=== PATIENT | female | born 1980 | race Two or more races ===

== ENCOUNTER 2023-05-12 07:45 | Inpatient (IN) | payer OTHER ==
[~2023-05-12] VITALS: Ht 165.1 cm; Wt 59.0 kg
[2023-05-12 08:57] LABS: PH,URINE 5.5 (5.0-8.0); URINE APPEARANCE Clear; URINE BILIRRUBIN Negative (NEGATIVE); URINE BLOOD Small; URINE COLOR Yellow; URINE GLUCOSE Negative (NEGATIVE); URINE LEUKOCYTE Negative; URINE NITRATE Negative; URINE PROTEIN Negative (NEGATIVE); URINE UROBILINOGEN 0.2 E.U./dl
[2023-05-12 09:01] LABS: URINE BACTERIA 12.5 uL (0.0-1933); URINE EPITHELIAL CELLS 10.5 uL (0.0-38.8); URINE RBC 15.2 uL (0.0-20.8)
[2023-05-12 09:12] LABS: HEMATOCRIT 39.7 % (36.0-45.00); HEMOGLOBIN 13.5 g/dL (12.0-15.00); MEAN CELL VOLUME 90.3 fL (80.00-100.00); MEAN CORPUSCULAR HEMOGLOBIN 30.8 pg (27.00-32.0); MEAN CORPUSCULAR HGB CONC 34.1 g/dl (32.0-36.0); PLATELET COUNT 196 K/uL (150-450); RED CELL DISTRIBUTION WIDTH 14.1 % (11.5-14.5)
[2023-05-12 09:24] LABS: INR 0.99; PARTIAL THROMBOPLASTIN TIME 26.8 SECONDS (22.0-34.0); PROTHROMBIN TIME 10.4 SECONDS (9.0-11.5)
[2023-05-12 09:48] LABS: BILIRUBIN TOTAL 1.1 mg/dL (0.3-1.2); CALCIUM 9.1 mg/dL (8.5-10.1); CREATININE SERUM 0.56 mg/dL (0.55-1.02); GFR 117.6; GLOBULINA 2.9 G/DL (2.4-3.5); POTASSIUM 4.1 mEq/L (3.5-5.1); TOTAL PROTEIN 6.9 gm/dL (6.4-8.2); TSH 1.79 uIU/mL (0.358-3.74)
[2023-05-15 13:40] LABS: HEMATOCRIT 36.6 % (36.0-45.00); HEMOGLOBIN 12.6 g/dL (12.0-15.00); MEAN CORPUSCULAR HEMOGLOBIN 30.5 pg (27.00-32.0); MEAN CORPUSCULAR HGB CONC 34.3 g/dl (32.0-36.0); PLATELET COUNT 173 K/uL (150-450); RED BLOOD COUNT 4.12 M/uL (4.00-6.00); RED CELL DISTRIBUTION WIDTH 14.1 % (11.5-14.5)
[2023-05-18] MEDS ORDERED: Tylenol #3 PO (11:36)
[2023-05-18] MEDS ORDERED: NAPR500T14 PO (11:36)
== END 2023-05-18 12:41 | disposition home or self-care (01) | DRG 743 ==
LOC: O/R 05-15 05:15 → SURG 05-15 07:45 → OB/GYN 05-15 12:28 → SURG 05-15 12:30 → O/R 05-15 14:02 → OB/GYN 05-15 14:11
PROVIDERS: ADMIT Obstetrics & Gynecology; ATTEND Obstetrics & Gynecology
PROC: 0UT70ZZ Resection of Bilateral Fallopian Tubes, Open Approach (ICD-10-PCS; 2023-05-15)
PROC: 0UT20ZZ Resection of Bilateral Ovaries, Open Approach (ICD-10-PCS; 2023-05-15)
PROC: 0TJB8ZZ Inspection of Bladder, Via Natural or Artificial Opening Endoscopic (ICD-10-PCS; 2023-05-15)
PROC: 0UT90ZZ Resection of Uterus, Open Approach (ICD-10-PCS; principal; 2023-05-15 12:30)
DX: D25.1 Intramural leiomyoma of uterus (principal); N84.1 Polyp of cervix uteri; N83.01 Follicular cyst of right ovary; N83.02 Follicular cyst of left ovary; N83.12 Corpus luteum cyst of left ovary; N83.11 Corpus luteum cyst of right ovary; N92.0 Excessive and frequent menstruation with regular cycle; N81.11 Cystocele, midline; Z20.822 Contact with and (suspected) exposure to COVID-19

== ENCOUNTER 2023-07-14 15:53 | Emergency (ER) | payer OTHER ==
[~2023-07-14] VITALS: Ht 165.1 cm; Wt 56.7 kg
[~2023-07-14 15:53] MED LIST: NAPR500T14 PO; Tylenol #3 PO
[2023-07-14 19:23] LABS: HEMATOCRIT 40.2 % (36.0-45.00); HEMOGLOBIN 13.8 g/dL (12.0-15.00); MEAN CELL VOLUME 86.4 fL (80.00-100.00); MEAN CORPUSCULAR HEMOGLOBIN 29.6 pg (27.00-32.0); MEAN CORPUSCULAR HGB CONC 34.3 g/dl (32.0-36.0); PLATELET COUNT 217 K/uL (150-450); RED BLOOD COUNT 4.65 M/uL (4.00-6.00); RED CELL DISTRIBUTION WIDTH 14.2 % (11.5-14.5)
[2023-07-14 19:39] LABS: CALCIUM 9.9 mg/dL (8.5-10.1); CREATININE SERUM 0.86 mg/dL (0.55-1.02); GFR 71.68; POTASSIUM 4.31 mEq/L (3.5-5.1)
[2023-07-14 20:11] LABS: PH,URINE 7.5 (5.0-8.0); URINE APPEARANCE Turbid; URINE BILIRRUBIN Negative (NEGATIVE); URINE BLOOD Negative; URINE COLOR Yellow; URINE GLUCOSE Negative (NEGATIVE); URINE LEUKOCYTE Moderate; URINE NITRATE Negative; URINE PROTEIN Negative (NEGATIVE); URINE UROBILINOGEN 0.2 E.U./dl
[2023-07-14 20:13] LABS: URINE BACTERIA 593.3 uL (0.0-1933); URINE EPITHELIAL CELLS 49.6 uL (0.0-38.8); URINE RBC 32.9 uL (0.0-20.8); URINE WBC 111.6 uL (0.0-23.2)
[2023-07-14 20:35] LABS: URINE EPITHELIAL CELLS 0-4 /HPF
[2023-07-14] MEDS ORDERED: DUI500 PO (21:23)
[2023-07-14] MEDS ORDERED: ANTIVERT25 M2 PO (21:23)
[2023-07-14] MEDS ORDERED: ONDANSETRON HCL4 MG PO (21:23)
== END 2023-07-14 21:43 ==
LOC: ER 15:54
PROVIDERS: Nurse Practitioner Family
DX: R42 Dizziness and giddiness (principal); N39.0 Urinary tract infection, site not specified; Z20.822 Contact with and (suspected) exposure to COVID-19